=== PATIENT | female | born 1975 | race Caucasian/White ===

== ENCOUNTER 2020-01-21 15:53 | Emergency (ER) | payer BC, OTHER ==
[~2020-01-21] VITALS: Ht 152.4 cm; Wt 68.0 kg
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
[2020-01-21 15:54] VITALS: BP 133/78
[2020-01-21] MEDS ORDERED: CYCLOBENZAPRINE5 MG PO (16:29)
== END 2020-01-21 16:48 | disposition home or self-care (01) ==
LOC: ER 15:53
DX: S16.1XXA Strain of muscle, fascia and tendon at neck level, initial encounter (principal); Z88.6 Allergy status to analgesic agent; Z88.8 Allergy status to other drugs, medicaments and biological substances; Z91.041 Radiographic dye allergy status; V89.2XXA Person injured in unspecified motor-vehicle accident, traffic, initial encounter; Y93.I9 Activity, other involving external motion; Y92.488 Other paved roadways as the place of occurrence of the external cause; Y99.8 Other external cause status